=== PATIENT | female | born 1945 | race Caucasian/White ===

== ENCOUNTER → 2020-07-30 15:45 | Outpatient (CLI) | payer OTHER, SELFPAY ==
--- NOTE | 2020-07-30 15:59 | DI.MG.S_ITS ---
Patient Name: VISHNU CONTE date: 1945 Sex: F Attending Physician: Chi Indications: Date: 07/30/2020 15:50 At the request of: CHARY SAUL Procedure: MM screening mammo BI BILATERAL DIGITAL SCREENING MAMMOGRAM 3D/2D WITH CAD: 07/30/2020 CLINICAL: Routine screening. Comparison is made to exams dated: 03/16/2018 mammogram, 09/02/2015 mammogram, and 08/30/2014 mammogram - [facility]. The tissue of both breasts is extremely dense, which lowers the sensitivity of mammography. Current study was also evaluated with a Computer Aided Detection (CAD) system. No significant masses, calcifications, or other findings are seen in either breast. There has been no significant interval change. IMPRESSION: NEGATIVE There is no mammographic evidence of malignancy. A 1 year screening mammogram is recommended. This exam was interpreted at Station ID: [id number]. NOTE: For mammograms, a report in lay terms will be sent to the patient. Approximately 15% of breast malignancies will not be visualized mammographically. In the management of a palpable breast mass, a negative mammogram must not discourage biopsy of a clinically suspicious lesion. Electronically Signed By: Amanuel Sanchez M.D., jr/amy:07/30/2020 16:16:34 letter sent: Normal Exam ACR BI-RADS Category 1: Negative 3341F
== END ==
PROVIDERS: Family Provider Family Medicine; PCP Nurse Practitioner; Referring Provider Nurse Practitioner; Visit Provider Nurse Practitioner
DX: Z12.31 Encounter for screening mammogram for malignant neoplasm of breast (principal)
CPT/HCPCS: 77063; 77067

== ENCOUNTER 2022-10-21 17:59 | Emergency (ER) | payer OTHER, SELFPAY ==
[2022-10-21] VITALS (14 sets, daily range): BP systolic 196–232; BP diastolic 79–102; PULSE 71–83; RESP 10–22; TEMP 36.9; O2SAT 93–100; BMI 35.5
--- NOTE | 2022-10-21 18:19 | DI.RAD.S_ITS ---
PROCEDURE: XR CHEST 1V INDICATIONS: Shortness of breath TECHNIQUE: One view of the chest was acquired. COMPARISON: None. FINDINGS: Surgical changes and devices: Loop recorder noted. Lungs and pleura: Lungs are clear. No pleural effusions or pneumothorax. Mediastinum: Mediastinal contours appear normal. Heart size is normal. Bones and chest wall: No suspicious bony lesions. Overlying soft tissues appear unremarkable. IMPRESSION: No acute cardiopulmonary process demonstrated radiographically. Dictated by: Amanuel Sanchez M.D. on 10/21/2022 at 19:12 Approved by: Amanuel Sanchez M.D. on 10/21/2022 at 19:12
--- NOTE | 2022-10-21 18:59 | PC.NURSE ---
at 18:[address] Arthur of pt's blood pressure 232/102.
[2022-10-21 19:07] LABS: Add Manual Diff / Slide Review NO; Basophils Absolute Auto 100 /uL (0-100); Basophils Percent Auto 1.1 % (0-2); Eosinophils Absolute Auto 200 /uL (0-450); Eosinophils Percent Auto 2.8 % (2-4); Hemoglobin 14.7 g/dL (12.0-16.0); Lymphocytes Absolute Auto 1000 /uL (1100-4500); Lymphocytes Percent Auto 13.6 % (25-40); Mean Corpuscular HGB Conc 34.2 % (30-36); Mean Corpuscular Volume 96.3 fL (80-100); Monocytes Absolute Auto 800 /uL (0-900); Monocytes Percent Auto 11.4 % (3-14); Neutrophils Absolute Auto 5000 /uL (1500-7000); Neutrophils Percent Auto 71.1 % (50-75); Platelet Count 304 X10^3/uL (150-400); Red Blood Cell Count 4.46 X10^6/uL (4.0-5.2); Red Cell Distribution Width 14.2 % (11.6-14.8)
--- NOTE | 2022-10-21 19:14 | ED_ITS ---
HPI - General Adult General Chief complaint: Shortness of Breath/Dyspnea Stated complaint: Thinks pneumonia Time Seen by Provider: 10/21/22 18:56 Source: patient Mode of arrival: Ambulatory History of Present Illness HPI narrative: 77-year-old woman with history of prior hypertension no longer needing medications, in 2018 had multiple episodes of syncope and an implantable EKG recorder was placed who presents with 48 hours of increasing shortness of breath weakness slight runny nose, does not note significant fevers. She is having a nonproductive cough. She notes that the dyspnea is a bit worse when lying flat but does feel that her chronic lower extremity edema is better than it has been previously. She is not complaining of nausea, vomiting, abdominal pain, diarrhea. She is not having headaches. She is noting global weakness. Related Data Home Medications Medication Instructions Recorded Confirmed doxycycline hyclate 100 mg tablet 100 mg PO #0 tabs 09/03/16 Previous Rx's Medication Instructions Recorded triamcinolone acetonide 0.1 % 1 lupe topical BID ##15 02/27/18 topical cream prednisone 20 mg tablet 20 mg PO DAILY #5 tabs 10/21/22 Allergies Allergy/AdvReac Type Severity Reaction Status Date / Time No Known Drug Allergies Allergy Unknown Unverified 02/06/19 14:01 [NO KNOWN DRUG ALLERGIES] TAPE Allergy Mild SENSITIVE Uncoded 02/06/19 14:01 RASH Review of Systems Review of Systems Narrative: Remainder of complete review of systems is otherwise unremarkable except for that included in the HPI. Patient History Medical History (Updated 10/21/22 @ 21:33 by Anjelica Arthur MD) Hypertension Surgical History Status post laparoscopic cholecystectomy Status post surgery (04/03/12) Social History Smoking Status: Never smoker Smoking Status: Never smoker Exam Initial Vital Signs Initial Vital Signs: Vital Signs Temperature 98.5 F 10/21/22 18:12 Pulse Rate 75 10/21/22 18:12 Respiratory Rate 18 10/21/22 18:12 Blood Pressure 222/93 H 10/21/22 18:12 Pulse Oximetry 97 10/21/22 18:12 Oxygen Delivery Method 10/21/22 18:12 General: Fatigued appearing but in no acute distress. Able to give a complete and coherent history. Well-nourished well-developed HEENT: Moist mucous membranes, normal sclera with reactive pupils, voice is somewhat hoarse, positive nasal discharge Neck: No JVD, supple Respiratory: Lungs with diffuse wheeze in all lung [place], no crackles, no rhonchi. Full and symmetrical air movement Cardiac: Regular rate and rhythm no murmurs no bruits Abdomen: Soft, nontender, good bowel tones, no flank pain Skin: Warm and dry, no rashes Neurologic: Grossly neurologically intact with no obvious asymmetries or abnormalities Extremities: No trauma, well perfused, 1+ bilateral lower extremity edema without chronic venous stasis changes Psych: Cooperative, appropriate insight and affect Course Orders Ordered: ED Orders 10/21/22 18:19 XR chest 1V Stat Measure peak expiratory flow ONCE RT Consult Eval and Treat NOW 10/21/22 18:28 Covid-19 + FLU A/B + RSV - PCR Stat 10/21/22 18:50 Complete Blood Count AUTO DIFF Stat Comprehensive Metabolic Panel Stat Lactate (Lactic Acid) Stat NT-proBNP (BNP-Adult 18+) Stat Prothrombin Time INR Stat Troponin I Stat 10/21/22 18:55 EKG-12 Lead Stat Discontinued Medications Albuterol (Albuterol Hfa Mdi 60 Puff/8 Gm Inhaler) 2 puff INH NOW ONE Stop: 10/21/22 21:09 Albuterol/Ipratropium (Albuterol/Ipratropium 3 Ml Ampul) 3 ml INH NOW ONE Stop: 10/21/22 19:26 Last Admin: 10/21/22 19:54 Dose: 3 ml Documented By: Methylprednisolone (Methylprednisolone 125 Mg/2 Ml Vial) 125 mg IV NOW ONE Stop: 10/21/22 19:26 Last Admin: 10/21/22 19:33 Dose: 125 mg Documented By: AT Vital Signs Vital signs: Vital Signs - 8 hr 10/21/22 18:12 10/21/22 18:41 10/21/22 18:52 Temperature 98.5 F Pulse Rate 75 83 Respiratory Rate 18 Blood Pressure 222/93 H 232/102 H Pulse Oximetry 97 98 Oxygen Delivery Method Room Air Room Air 10/21/22 18:52 10/21/22 19:00 10/21/22 19:00 Temperature Pulse Rate 74 71 Respiratory Rate 17 16 Blood Pressure 202/93 H Pulse Oximetry 98 97 Oxygen Delivery Method Room Air Room Air 10/21/22 19:30 10/21/22 19:30 10/21/22 20:00 Temperature Pulse Rate 71 74 Respiratory Rate 14 10 L Blood Pressure 220/92 H Pulse Oximetry 97 100 Oxygen Delivery Method Room Air Room Air 10/21/22 20:01 10/21/22 20:01 10/21/22 20:30 Temperature Pulse Rate 76 76 Respiratory Rate 22 12 Blood Pressure 200/82 H Pulse Oximetry 100 97 Oxygen Delivery Method Medical Decision Making Lab Data Result diagrams: 10/21/22 18:50 10/21/22 18:50 Labs: Lab Results 10/21/22 10/21/22 10/21/22 Range/Units 18:28 18:50 18:50 WBC 7.0 (4.5-11.0) X10^3/uL RBC 4.46 (4.0-5.2) X10^6/uL Hgb 14.7 (12.0-16.0) g/dL Hct 43.0 (36-46) % MCV 96.3 (80-100) fL MCH 33.0 (26-34) PG MCHC 34.2 (30-36) % RDW 14.2 (11.6-14.8) % Plt Count 304 (150-400) X10^3/uL Neut % (Auto) 71.1 (50-75) % Lymph % (Auto) 13.6 L (25-40) % Henderson % (Auto) 11.4 (3-14) % Eos % (Auto) 2.8 (2-4) % Baso % (Auto) 1.1 (0-2) % Neut # (Auto) 5000 (3692-4609) /uL Lymph # (Auto) 1000 L (0923-6865) /uL Henderson # (Auto) 800 (0-900) /uL Eos # (Auto) 200 (0-450) /uL Baso # (Auto) 100 (0-100) /uL PT 12.0 (10.1-12.7) SECONDS INR 1.0 (0.9-1.3) Sodium (137-145) mmol/L Potassium (3.4-5.1) mmol/L Chloride (98-107) mmol/L Carbon Dioxide (22-32) mmol/L BUN (7-17) mg/dL Creatinine (0.52-1.04) mg/dL Estimated GFR (>60) mL/min BUN/Creatinine Ratio (6-22) Glucose (80-110) mg/dL Lactate (0.7-2.1) mmol/L Calcium (8.4-10.2) mg/dL Total Bilirubin (0.2-1.3) mg/dL AST (14-36) IU/L ALT (<35) IU/L Alkaline Phosphatase (38-126) U/L Troponin I (0.01-0.034) ng/mL NT-Pro-B Natriuret Pep (<450) pg/mL Total Protein (6.3-8.2) g/dL Albumin (3.5-5.0) g/dL Globulin (1.7-4.1) g/dL Albumin/Globulin Ratio (1.0-2.8) SARS-CoV-2 (PCR) Positive H (Negative) Influenza A (RT-PCR) Flu a negative (NEGATIVE) Influenza B (RT-PCR) Flu b negative (NEGATIVE) RSV (PCR) Positive A (Negative) 10/21/22 10/21/22 Range/Units 18:50 18:50 WBC (4.5-11.0) X10^3/uL RBC (4.0-5.2) X10^6/uL Hgb (12.0-16.0) g/dL Hct (36-46) % MCV (80-100) fL MCH (26-34) PG MCHC (30-36) % RDW (11.6-14.8) % Plt Count (150-400) X10^3/uL Neut % (Auto) (50-75) % Lymph % (Auto) (25-40) % Henderson % (Auto) (3-14) % Eos % (Auto) (2-4) % Baso % (Auto) (0-2) % Neut # (Auto) (1893-6620) /uL Lymph # (Auto) (3954-1529) /uL Henderson # (Auto) (0-900) /uL Eos # (Auto) (0-450) /uL Baso # (Auto) (0-100) /uL PT (10.1-12.7) SECONDS INR (0.9-1.3) Sodium 139 (137-145) mmol/L Potassium 3.9 (3.4-5.1) mmol/L Chloride 103 (98-107) mmol/L Carbon Dioxide 28 (22-32) mmol/L BUN 10 (7-17) mg/dL Creatinine 0.80 (0.52-1.04) mg/dL Estimated GFR > 60 (>60) mL/min BUN/Creatinine Ratio 12.5 (6-22) Glucose 102 (80-110) mg/dL Lactate 1.2 (0.7-2.1) mmol/L Calcium 9.4 (8.4-10.2) mg/dL Total Bilirubin 0.3 (0.2-1.3) mg/dL AST 31 (14-36) IU/L ALT 26 (<35) IU/L Alkaline Phosphatase 85 (38-126) U/L Troponin I < 0.012 (0.01-0.034) ng/mL NT-Pro-B Natriuret Pep 361 (<450) pg/mL Total Protein 7.9 (6.3-8.2) g/dL Albumin 4.7 (3.5-5.0) g/dL Globulin 3.2 (1.7-4.1) g/dL Albumin/Globulin Ratio 1.5 (1.0-2.8) SARS-CoV-2 (PCR) (Negative) Influenza A (RT-PCR) (NEGATIVE) Influenza B (RT-PCR) (NEGATIVE) RSV (PCR) (Negative) Imaging Data Chest x-ray: Radiologist's Impression: FINDINGS:? ? Surgical changes and devices:? Loop recorder noted. ? Lungs and pleura:? Lungs are clear.? No pleural effusions or pneumothorax.? ? Mediastinum:? Mediastinal contours appear normal.? Heart size is normal.? ? Bones and chest wall:? No suspicious bony lesions.? Overlying soft tissues appear unremarkable.? ? IMPRESSION:? No acute cardiopulmonary process demonstrated radiographically. ? ? Dictated by: Amanuel Sanchez M.D. on 10/21/2022 at 19:12 ? ? ECG Data Interpretation: Sinus rhythm at a rate of [address] T wave changes MDM Narrative Medical decision making narrative: 77-year-old woman with upper respiratory symptoms for the last days increasing wheezing. She is positive for both RSV and COVID. She responded nicely to Solu-Medrol IV and a DuoNeb. There is no evidence of sepsis or bacterial complication. No evidence of acute coronary syndrome or DVT. Her blood pressures have been elevated while in the hospital. A number of years ago she had been on blood pressure medications but over the last few years blood pressures have been normal. At this time she is not meeting any criteria for hospital admission, will plan to discharge home she is given a spacer and albuterol MDI and will have her complete 5 additional days of prednisone for the wheezing. Regarding her elevated blood pressures in the emergency department, she does have a blood pressure cuff at home and I have suggested that she check blood pressures when she is over this acute illness and follow-up with her primary care doctor. Questions are answered and she is safe for home discharge Discharge Plan Departure Patient Disposition: Home Clinical Impression: Respiratory syncytial virus, COVID, COVID-19 Instructions: DI for Respiratory Syncytial Virus -- Adults, DI for COVID-19 (Suspected or Confirmed ) Activity Restrictions/Additional Instructions: Thank you for coming in today Fortunately you do not have bacterial pneumonia, congestive heart failure or any evidence of a heart attack. You do however have viral pneumonia from 2 separate viruses. You tested positive for both respiratory syncytial virus (RSV)as well as COVID. The wheezing that you are experiencing is common with RSV. You responded well to an inhaler in the emergency department. You were also given IV steroids. I have sent you home with a spacer and a meter dose inhaler for albuterol. Please use 2 puffs of albuterol 4 times a day and if you are having increasing wheezing or coughing spell that is persisting. I have given you a prescription for prednisone 20 mg daily for the next 5 days If you find that you are getting worse, increasing chest pain, weakness, feeling more short of breath wheezing is uncontrolled or you have new symptoms it would be appropriate to return to the emergency department Prescriptions: New prednisone 20 mg tablet 20 mg PO DAILY Qty: 5 0RF No Action doxycycline hyclate 100 MG tablet 100 mg PO Qty: 0 triamcinolone acetonide 0.1 % cream 1 lupe Topical BID Qty: 15 0RF Referrals: Codi Mireles ARNP [Primary Care Provider] - Stand Alone Forms: Work Release Note
[2022-10-21 19:15] LABS: Lactate (Lactic Acid) 1.2 mmol/L (0.7-2.1)
[2022-10-21 19:16] LABS: Alanine Aminotransferase 26 IU/L (<35); Albumin 4.7 g/dL (3.5-5.0); Albumin Globulin Ratio 1.5 (1.0-2.8); Alkaline Phosphatase 85 U/L (38-126); Aspartate Aminotransferase 31 IU/L (14-36); BUN Creatinine Ratio 12.5 (6-22); Bilirubin Total 0.3 mg/dL (0.2-1.3); Blood Urea Nitrogen 10 mg/dL (7-17); Calcium 9.4 mg/dL (8.4-10.2); Carbon Dioxide 28 mmol/L (22-32); Chloride 103 mmol/L (98-107); Estimated Glomerular Filt Rate > 60 mL/min (>60); Globulin 3.2 g/dL (1.7-4.1); Glucose 102 mg/dL (80-110); HEMOLYSIS < 15 (0-50); Potassium 3.9 mmol/L (3.4-5.1); Sodium 139 mmol/L (137-145); Total Protein 7.9 g/dL (6.3-8.2)
[2022-10-21 19:23] LABS: Influenza A - CEPHEID Flu A NEGATIVE (NEGATIVE); Influenza B - CEPHEID Flu B NEGATIVE (NEGATIVE); Respiratory Syncytial Virus POSITIVE (Negative)
[2022-10-21 19:27] LABS: NT-proBNP (BNP-Adult 18+) 361 pg/mL (<450); Troponin I < 0.012 ng/mL (0.01-0.034)
[2022-10-21] MEDS: methylPREDNISolone 125 MG/2 ML VIAL IV (19:33)
[2022-10-21 19:40] LABS: COVID-19 CEPHEID 4-PLEX PCR POSITIVE (Negative)
[2022-10-21] MEDS: ALBUTEROL/IPRATROPIUM 3 ML AMPUL INH (19:54)
[2022-10-21] MEDS: ALBUTEROL HFA MDI 60 PUFF/8 GM INHALER INH (21:31)
--- NOTE | 2022-10-21 21:58 | PC.NURSE ---
Dr. Arthur aware of pt's blood pressures. This nurse discussed with patient upon discharge about seeing their primary provider and following up about her care. Patient verbalizes understanding and agrees.
== END 2022-10-21 22:00 | disposition home or self-care (01) ==
PROVIDERS: Emergency Provider Emergency Medicine; Family Provider Family Medicine; PCP Nurse Practitioner
DX: U07.1 COVID-19 (principal); B97.4 Respiratory syncytial virus as the cause of diseases classified elsewhere
CPT/HCPCS: 0241U; 36415; 71045; 80053; 83605; 83880; 84484; 85025; 85610; 93005; 96374; 99284; A9270; J2930

== ENCOUNTER → 2023-09-14 14:40 | Outpatient (CLI) | payer OTHER, SELFPAY ==
--- NOTE | 2023-09-14 | DI.MG.S_ITS ---
BILATERAL DIGITAL SCREENING MAMMOGRAM 3D/2D WITH CAD: 09/14/2023 CLINICAL: Routine screening. Comparison is made to exams dated: 07/30/2020 mammogram and 03/16/2018 mammogram - [facility]. Both breasts are extremely dense, which lowers the sensitivity of mammography (category d />75% glandular tissue). Current study was also evaluated with a Computer Aided Detection (CAD) system. No significant masses, calcifications, or other findings are seen in either breast. There has been no significant interval change. IMPRESSION: NEGATIVE There is no mammographic evidence of malignancy. A 1 year screening mammogram is recommended. Based on the Tyrer Cuzick model (a risk assessment model) the patient's lifetime risk is 5.6% and her 10 year risk is 0.0%. According to the ACR, ACS, and NCCN guidelines, an annual breast MRI exam along with mammogram is recommended if the patient's lifetime risk is 20% or greater. This exam was interpreted at Station ID: [id number]. NOTE: For mammograms, a report in lay terms will be sent to the patient. Approximately 15% of breast malignancies will not be visualized mammographically. In the management of a palpable breast mass, a negative mammogram must not discourage biopsy of a clinically suspicious lesion. Electronically Signed By: Adalberto carroll/amy:09/15/2023 10:30:41 letter sent: Normal Exam ACR BI-RADS Category 1: Negative 3341F
== END ==
PROVIDERS: Family Provider Family Medicine; PCP Nurse Practitioner; Referring Provider Nurse Practitioner; Visit Provider Nurse Practitioner
DX: Z12.31 Encounter for screening mammogram for malignant neoplasm of breast (principal)
CPT/HCPCS: 77063; 77067

== ENCOUNTER → 2023-10-24 13:09 | Outpatient (CLI) | payer OTHER, SELFPAY ==
[2023-10-24 14:24] LABS: Add Manual Diff / Slide Review NO; Basophils Absolute Auto 100 /uL (0-100); Basophils Percent Auto 1.2 % (0-2); Eosinophils Absolute Auto 400 /uL (0-450); Eosinophils Percent Auto 5.6 % (2-4); Hematocrit 39.8 % (36-46); Hemoglobin 13.5 g/dL (12.0-16.0); Lymphocytes Absolute Auto 1900 /uL (1100-4500); Lymphocytes Percent Auto 28.1 % (25-40); Mean Corpuscular Volume 97.1 fL (80-100); Monocytes Absolute Auto 600 /uL (0-900); Monocytes Percent Auto 9.2 % (3-14); Neutrophils Absolute Auto 3800 /uL (1500-7000); Neutrophils Percent Auto 55.9 % (50-75); Platelet Count 345 X10^3/uL (150-400); Red Cell Distribution Width 13.3 % (11.6-14.8); White Blood Cell Count 6.8 X10^3/uL (4.5-11.0)
[2023-10-24 14:46] LABS: Alanine Aminotransferase 15 IU/L (<35); Albumin 4.2 g/dL (3.5-5.0); Albumin Globulin Ratio 1.4 (1.0-2.8); Alkaline Phosphatase 60 U/L (38-126); Aspartate Aminotransferase 22 IU/L (14-36); BUN Creatinine Ratio 13.8 (6-22); Bilirubin Total 0.6 mg/dL (0.2-1.3); Blood Urea Nitrogen 12 mg/dL (7-17); Calcium 9.6 mg/dL (8.4-10.2); Carbon Dioxide 26 mmol/L (22-32); Chloride 106 mmol/L (98-107); Cholesterol 221 mg/dL (140-199); Estimated Glomerular Filt Rate > 60 mL/min (>60); Glucose 87 mg/dL (80-110); HDL Cholesterol 62 mg/dL (40-60); HEMOLYSIS < 15 (0-50); LDL Cholesterol Calculated 139 mg/dL (<100); Potassium 4.6 mmol/L (3.4-5.1); Sodium 138 mmol/L (137-145); Total Protein 7.2 g/dL (6.3-8.2); Triglycerides 100 mg/dL (35-150)
[2023-10-24 17:29] LABS: Creatinine Urine Random 247.9 mg/dL
[2023-10-24 17:33] LABS: Microalbumi Creatinin Ratio Ur 6.8 ug/mg CR (<30); Microalbumin Urine Random 1.7 mg/dL (0-1.6)
== END ==
PROVIDERS: Family Medicine; Family Provider Family Medicine; PCP Nurse Practitioner; Referring Provider Nurse Practitioner; Visit Provider Nurse Practitioner
DX: I10 Essential (primary) hypertension (principal)
CPT/HCPCS: 36415; 80053; 80061; 82043; 82570; 85025

== ENCOUNTER → 2023-12-26 12:45 | Outpatient (CLI) | payer OTHER, SELFPAY ==
--- NOTE | 2023-12-26 12:46 | DI.RAD.S_ITS ---
Bone Density Report Name: VISHNU CONTE Age: 78 Sex: Female Ethnicity: White Date of : 1945 Indication: postmenopausal; screening for osteoporosis; Referring Provider: CHARY SAUL Study: Bone densitometry was performed. Exam Date: December 26, 2023 Accession number: [id number] Bone Density: Region BMD T-score Z-score Classification AP Spine(L2, L3, L4) 1.410 3.0 5.7 Normal Femoral Neck (Left) 0.878 0.3 2.5 Normal Total Hip (Left) 1.015 0.6 2.6 Normal Femoral Neck (Right) 0.774 -0.7 1.6 Normal Total Hip (Right) 0.948 0.1 2.0 Normal Total Hip Mean 0.982 0.4 2.3 Normal World Health Organization criteria for BMD impression classify patients as: Normal (T-score at or above -1.0), Osteopenia (T-score between -1.0 and -2.5), or Osteoporosis (T-score at or below -2.5). 10-year Fracture Risk: FRAX not reported because: All T-scores for Spine Total, Hip Total, Femoral Neck at or above -1.0 Previous Exams: -- Region Exam Age BMD T-score BMD Change BMD Change Date g/cm2 vs Baseline vs Previous -- AP Spine (L2-L4) 12/26/2023 78 1.410 3.0 -0.087 (-5.8%)# -0.087 (-5.8%)# 09/23/2016 71 1.497 3.8 Total Hip(Left) 12/26/2023 78 1.015 0.6 -0.094 (-8.4%)# -0.094 (-8.4%)# 09/23/2016 71 1.109 1.4 Total Hip(Right) 12/26/2023 78 0.948 0.1 -0.088 (-8.5%)# -0.088 (-8.5%)# 09/23/2016 71 1.036 0.8 -- *Denotes significance at 95% confidence level, LSC for AP Spine = 0.022 g/cm2, LSC for Total Hip = 0.027 g/cm2 # Denotes dissimilar scan types or analysis methods Impression: The patient has normal bone mass. No significant bone loss was observed. Discussion: BONE DENSITY IS ABOVE THE MINIMUM DESIRABLE LEVEL AT ALL SKELETAL SITES TESTED. This patient's bone mineral density is above the minimum desirable level (T-score -1.0 or better) at all sites measured. The patient should follow a healthful lifestyle (good nutrition with adequate calcium and vitamin D, and appropriate weight-bearing exercise). Follow-Up: Consider repeating this study in 5 years or sooner if there is some new clinical indication. Reported by: YASMINE PADILLA M.D. on 12/26/2023 1:16:00 PM.
== END ==
LOC: RAD 12:46
PROVIDERS: Family Provider Family Medicine; PCP Nurse Practitioner; Referring Provider Family Medicine; Visit Provider Family Medicine
DX: Z78.0 Asymptomatic menopausal state (principal)
CPT/HCPCS: 77080

== ENCOUNTER → 2024-01-11 16:30 | Outpatient (CLI) | payer OTHER, SELFPAY ==
[2024-01-11 17:05] LABS: Add Manual Diff / Slide Review NO; Basophils Absolute Auto 0 /uL (0-100); Basophils Percent Auto 0.4 % (0-2); Eosinophils Absolute Auto 400 /uL (0-450); Eosinophils Percent Auto 6.6 % (2-4); Hematocrit 38.7 % (36-46); Hemoglobin 13.1 g/dL (12.0-16.0); Lymphocytes Absolute Auto 2000 /uL (1100-4500); Lymphocytes Percent Auto 31.8 % (25-40); Mean Corpuscular Hemoglobin 33.5 PG (26-34); Mean Corpuscular Volume 98.5 fL (80-100); Monocytes Absolute Auto 400 /uL (0-900); Monocytes Percent Auto 7.3 % (3-14); Neutrophils Absolute Auto 3300 /uL (1500-7000); Neutrophils Percent Auto 53.9 % (50-75); Platelet Count 334 X10^3/uL (150-400); Red Blood Cell Count 3.92 X10^6/uL (4.0-5.2); Red Cell Distribution Width 13.3 % (11.6-14.8); White Blood Cell Count 6.1 X10^3/uL (4.5-11.0)
[2024-01-11 17:24] LABS: Alanine Aminotransferase 14 IU/L (<35); Albumin 4.4 g/dL (3.5-5.0); Albumin Globulin Ratio 1.5 (1.0-2.8); Alkaline Phosphatase 65 U/L (38-126); Aspartate Aminotransferase 24 IU/L (14-36); BUN Creatinine Ratio 18.4 (6-22); Bilirubin Total 0.6 mg/dL (0.2-1.3); Blood Urea Nitrogen 19 mg/dL (7-17); Calcium 9.3 mg/dL (8.4-10.2); Carbon Dioxide 25 mmol/L (22-32); Chloride 104 mmol/L (98-107); Estimated Glomerular Filt Rate 56 mL/min (>60); Glucose 90 mg/dL (80-110); HEMOLYSIS < 15 (0-50); Potassium 4.4 mmol/L (3.4-5.1); Sodium 139 mmol/L (137-145); Total Protein 7.4 g/dL (6.3-8.2)
[2024-01-11 18:20] LABS: Free T4, Direct Thyroxine 1.15 ng/dL (0.78-2.19)
== END ==
PROVIDERS: Family Provider Family Medicine; PCP Nurse Practitioner; Referring Provider Physician Assistant; Visit Provider Physician Assistant
DX: R55 Syncope and collapse (principal)
CPT/HCPCS: 36415; 80053; 84439; 84443; 85025

== ENCOUNTER → 2024-02-23 15:51 | Outpatient (CLI) | payer OTHER, SELFPAY ==
--- NOTE | 2024-02-23 | DI.ECHO.S_ITS ---
[facility]---------+ [facility] +---------+ : : [address] : : : : [id number] : : : : Phone: [phone]---------+ Echocardiogram Report + + :Name: VISHNU CONTE Study Date: 02/23/2024 Height: 66 in : :[facility] ReadingLocation: Weight: 225 lb : : Gender: Female BSA: 2.1 m2 : :: 1945 Age: 78 yrs BP: 154/79 mmHg: :Reason For Study: DIZZINESS : :Ordering Physician: ADAIR, : :SHALOM Slater Performed By: Amanuel Smith : :Referring: SHALOM BORRERO : + + Interpretation Summary The left ventricle is normal in size. There is mild asymmetric left ventricular hypertrophy. No systolic anterior motion of the mitral valve. There is no echo evidence for significant left ventricular outflow tract obstruction. The left ventricular ejection fraction is normal. The ejection fraction is estimated to be 60-65%. No significant change in LVEF from the previous study. The right ventricle is normal in size and function. There is mild to moderate mitral regurgitation. Compared to the prior echo study, there has been no change in the severity of mitral regurgitation. There is mild tricuspid regurgitation. Compared to the prior echo exam, there has been no change in TR severity. The right ventricular systolic pressure is estimated to be at least 25 mmHg based on an estimated right atrial pressure of 3 mm Hg. Procedure: A two-dimensional transthoracic echocardiogram with color flow and Doppler was performed. The study quality was technically adequate. Comparison is made with the echocardiogram of 11/23/2017. The patient was in normal sinus rhythm during the exam. The heart rate ranged between 61-72 bpm during the study. Left Ventricle: The left ventricle is normal in size. There is mild asymmetric left ventricular hypertrophy. There is no echo evidence for significant left ventricular outflow tract obstruction. There is no thrombus. The ejection fraction is estimated to be 60-65%. The left ventricular ejection fraction is normal. There are no focal wall motion abnormalities. MV E/A: 1.0 Med Peak E' Nadeem: 5.8 cm/sec E/E' med: 11.6. Right Ventricle: The right ventricle is normal in size and function. Atria: The left atrium is moderately dilated. There has been no significant change since the previous study. Right atrial size is normal. The interatrial septum grossly appears intact with no obvious evidence for an atrial septal defect. Mitral Valve: No systolic anterior motion of the mitral valve. There is mild mitral annular calcification. There is no mitral valve stenosis. There is mild to moderate mitral regurgitation. Compared to the prior echo study, there has been no change in the severity of mitral regurgitation. Aortic Valve: The aortic valve is trileaflet. The aortic valve is mildly calcified. There is no aortic valve stenosis. No aortic regurgitation is present. Tricuspid Valve: The tricuspid valve is normal. There is no tricuspid stenosis. There is mild tricuspid regurgitation. The right ventricular systolic pressure is estimated to be at least 25 mmHg based on an estimated right atrial pressure of 3 mm Hg. Compared to the prior echo exam, there has been no change in TR severity. Pulmonic Valve: The pulmonic valve is not well visualized. There is no pulmonic valvular stenosis. There is trace pulmonic regurgitation. Great Vessels: The aortic root is normal size. The dimensions of the ascending aorta are normal. The IVC is of normal diameter and collapses greater than 50% with a sniff. This suggests a low right atrial pressure of 3 mm Hg. Pericardium/ Pleura There is no pericardial effusion. There is an anterior echo-free space consistent with a fat pad. There is no pleural effusion. MMode/2D Measurements & Calculations LVIDd: 4.9 cm LVOT diam: 2.1 cm LVIDs: 3.0 cm Ao root diam: 2.7 cm FS: 37.4 % asc Aorta Diam: 2.9 cm IVSd: 1.3 cm LVPWd: 1.1 cm LV thao. diameter/BSA (cm/m^2): 2.3 LV sys. diameter/BSA (cm/m^2): 1.4 LA A2 area: 20.9 cm2 RA long axis: 4.4 cm LA A4 area: 32.9 cm2 RA area: 15.8 cm2 LA length (vol): 6.8 cm RA vol: 48.4 ml LA vol: 85.7 ml RA : 23.0 ml/m2 LA vol index: 40.8 ml/m2 IVC diam: 1.8 cm RVD1 (basal): 3.7 cm RVD2 (mid): 3.0 cm TAPSE: 2.2 cm Doppler Measurements & Calculations Ao V2 max: 135.1 cm/sec LVOT Max Nadeem: 97.9 cm/sec Ao V2 mean: 97.4 cm/sec LV V1 max P.8 mmHg Ao max P.3 mmHg LV V1 VTI: 23.9 cm Ao mean P.2 mmHg SAVITA(I,D): 2.7 cm2 Ao V2 VTI: 31.1 cm SAVITA(V,D): 2.6 cm2 sev ratio: 0.77 SAVITA indexed to BSA (cm^2/m^2): 1.3 MV E max nadeem: 67.9 cm/sec TR max nadeem: 235.2 cm/sec MV A max nadeem: 65.2 cm/sec TR max P.1 mmHg MV E/A: 1.0 PA V2 max: 103.4 cm/sec Med Peak E' Nadeem: 5.8 cm/sec PA V2 mean: 75.9 cm/sec E/E' med: 11.6 PA mean P.5 mmHg Lat Peak E' Nadeem: 8.3 cm/sec PA pr(Accel): 36.2 mmHg E/E' lat: 8.2 E/e' average: 9.9 MV dec time: 0.23 sec SV(LVOT): 85.5 ml Reading Physician:02:34 PM
== END ==
PROVIDERS: Family Provider Family Medicine; PCP Nurse Practitioner; Referring Provider Physician Assistant; Visit Provider Physician Assistant
DX: I08.1 Rheumatic disorders of both mitral and tricuspid valves (principal); R42 Dizziness and giddiness
CPT/HCPCS: 93306

== ENCOUNTER → 2024-10-31 13:56 | Outpatient (CLI) | payer OTHER, SELFPAY ==
[2024-10-31 15:00] LABS: Add Manual Diff / Slide Review NO; Basophils Absolute Auto 100 /uL (0-100); Basophils Percent Auto 2.2 % (0-2); Eosinophils Absolute Auto 600 /uL (0-450); Eosinophils Percent Auto 9.8 % (2-4); Hematocrit 39.1 % (36-46); Hemoglobin 13.3 g/dL (12.0-16.0); Lymphocytes Absolute Auto 1900 /uL (1100-4500); Lymphocytes Percent Auto 32.9 % (25-40); Mean Corpuscular HGB Conc 33.9 % (30-36); Mean Corpuscular Hemoglobin 33.5 PG (26-34); Mean Corpuscular Volume 98.7 fL (80-100); Monocytes Absolute Auto 500 /uL (0-900); Monocytes Percent Auto 8.6 % (3-14); Neutrophils Absolute Auto 2600 /uL (1500-7000); Neutrophils Percent Auto 46.5 % (50-75); Platelet Count 354 X10^3/uL (150-400); Red Blood Cell Count 3.96 X10^6/uL (4.0-5.2); Red Cell Distribution Width 12.9 % (11.6-14.8); White Blood Cell Count 5.6 X10^3/uL (4.5-11.0)
[2024-10-31 15:21] LABS: Alanine Aminotransferase 15 IU/L (<35); Albumin 4.1 g/dL (3.5-5.0); Albumin Globulin Ratio 1.5 (1.0-2.8); Alkaline Phosphatase 72 U/L (38-126); Aspartate Aminotransferase 24 IU/L (14-36); BUN Creatinine Ratio 15.6 (6-22); Bilirubin Total 0.6 mg/dL (0.2-1.3); Blood Urea Nitrogen 15 mg/dL (7-17); Calcium 9.1 mg/dL (8.4-10.2); Carbon Dioxide 27 mmol/L (22-32); Chloride 106 mmol/L (98-107); Cholesterol 217 mg/dL (140-199); Estimated Glomerular Filt Rate > 60 mL/min (>60); Globulin 2.7 g/dL (1.7-4.1); Glucose 99 mg/dL (80-110); HDL Cholesterol 68 mg/dL (40-60); HEMOLYSIS < 15 (0-50); LDL Cholesterol Calculated 128 mg/dL (<100); Potassium 4.6 mmol/L (3.4-5.1); Sodium 138 mmol/L (137-145); Total Protein 6.8 g/dL (6.3-8.2); Triglycerides 105 mg/dL (35-150)
[2024-10-31 15:38] LABS: Free T3, Triiodothyronine Free 2.96 pg/mL (2.77-5.27); Free T4, Direct Thyroxine 1.12 ng/dL (0.78-2.19)
[2024-10-31 15:40] LABS: Microalbumin Urine Random 0.7 mg/dL (0-1.6)
[2024-10-31 15:51] LABS: Thyroid Stimulating Hormone 0.441 uIU/mL (0.47-4.68)
[2024-10-31 16:10] LABS: Vitamin B12 704 pg/mL (239-931)
[2024-10-31 23:50] LABS: Hep C Virus Ab w/Reflex Quant NEGATIVE s/c (NEGATIVE)
== END ==
PROVIDERS: PCP Nurse Practitioner Family; Referring Provider Nurse Practitioner; Visit Provider Nurse Practitioner
DX: D64.9 Anemia, unspecified (principal); I10 Essential (primary) hypertension; E78.5 Hyperlipidemia, unspecified; Z11.59 Encounter for screening for other viral diseases
CPT/HCPCS: 36415; 80053; 80061; 82043; 82570; 82607; 84439; 84443; 84481; 85025; 86803

== ENCOUNTER → 2025-06-25 11:10 | Outpatient (CLI) | payer OTHER, SELFPAY ==
[2025-06-25 12:15] LABS: Cholesterol 149 mg/dL (140-199); HDL Cholesterol 64 mg/dL (40-60); Triglycerides 72 mg/dL (35-150)
== END ==
PROVIDERS: PCP Nurse Practitioner Family; Referring Provider Nurse Practitioner Family; Visit Provider Nurse Practitioner Family
DX: E78.5 Hyperlipidemia, unspecified (principal)
CPT/HCPCS: 36415; 80061